=== PATIENT | male | born 1990 | race Two or more races ===

== ENCOUNTER 2016-11-20 07:29 | Emergency (ER) | payer SELFPAY ==
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
== END 2016-11-20 08:30 | disposition home or self-care (01) ==
LOC: ER 07:29
PROC: 0HQJXZZ Repair Left Upper Leg Skin, External Approach (ICD-10-PCS; principal; 2016-11-20)
PROC: 0HQGXZZ Repair Left Hand Skin, External Approach (ICD-10-PCS; principal; 2016-11-20)
DX: S71.112A Laceration without foreign body, left thigh, initial encounter (principal); S61.412A Laceration without foreign body of left hand, initial encounter; X99.9XXA Assault by unspecified sharp object, initial encounter